=== PATIENT | female | born 1970 | race Caucasian/White ===

== ENCOUNTER 2020-10-23 20:41 | Emergency (ER) | payer SELFPAY ==
[2020-10-23] MEDS ORDERED: Prochlorperazine 5 MG Tab PO ONE (20:42)
[2020-10-23] MEDS ORDERED: Prochlorperazine 10 MG/2 ML SDV IM ONE (21:38)
--- NOTE | 2020-10-23 21:43 | EDM.PDOC ---
ED HPI GENERAL MEDICAL PROBLEM - General Chief Complaint: General Stated Complaint: SHAKY,DIZZY, LOSS OF SLEEP Time Seen by Provider: 10/23/20 21:40 Source of Information: Reports: Patient History Limitations: Reports: No Limitations - History of Present Illness INITIAL COMMENTS - FREE TEXT/NARRATIVE: Jackie is a 49 yo female with complains of dizziness,nausea. She also complains of anxiety,insomnia.She quit smoking 2 days ago and has been feeling so since.No chest pain or fever. She has a h/o COPD,JACK. 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 - Caffeine Use Caffeine Use: Reports: Soda - Recreational Drug Use Recreational Drug Use: Yes Drug Use in Last 12 Months: No Recreational Drug Type: Reports: Methamphetamine ED ROS GENERAL - Review of Systems Review Of Systems: Comprehensive ROS is negative, except as noted in HPI. ED EXAM, GENERAL - Physical Exam Exam: See Below Exam Limited By: No Limitations General Appearance: Alert, No Apparent Distress Ear Exam: Bilateral Ear: Auricle Normal, Canal Normal, TM normal Nose: Normal Inspection Head: Atraumatic Neck: Normal Inspection Respiratory/Chest: Decreased Breath Sounds, Rhonchi Cardiovascular: Normal Peripheral Pulses Neurological: Alert, Oriented Skin Exam: Warm #1 Interpretation EKG Date: 10/23/20 Rhythm: NSR [place]: Normal Comparison: NA - No Prior EKG Course - Vital Signs Last Recorded V/S: Last Vital Signs Temp 97.4 F 10/23/20 20:50 Pulse 76 10/23/20 20:50 Resp 20 10/23/20 20:50 BP 167/91 H 10/23/20 20:50 Pulse Ox 97 10/23/20 20:50 - Orders/Labs/Meds Orders: Active Orders 24 hr Category Date Time Status EKG Documentation Completion [RC] ASDIRECTED Care 10/23/20 20:52 Active CBC WITH AUTO DIFF [HEME] Stat Lab 10/23/20 20:52 Ordered ETOH [ETHANOL BLOOD MEDICAL] [CHEM] Stat Lab 10/23/20 20:52 Ordered TROPONIN I [CHEM] Stat Lab 10/23/20 20:52 Ordered UA W/MICROSCOPIC [URIN] Stat Lab 10/23/20 21:10 Ordered EKG 12 Lead [EK] Routine Ther 10/23/20 20:52 Ordered Labs: Laboratory Tests 10/23/20 10/23/20 Range/Units 21:05 21:10 Sodium 143 (135-145) mmol/L Potassium 4.0 (3.5-5.3) mmol/L Chloride 102 (100-110) mmol/L Carbon Dioxide 33 H (21-32) mmol/L BUN 19 H (7-18) mg/dL Creatinine 0.8 (0.55-1.02) mg/dL Est Cr Clr Drug Dosing 62.78 mL/min Estimated GFR (MDRD) > 60 (>60) BUN/Creatinine Ratio 23.8 H (9-20) Glucose 102 (80-116) mg/dL Calcium 9.1 (8.6-10.2) mg/dL Total Bilirubin 0.3 (0.1-1.3) mg/dL AST 27 H (5-25) IU/L ALT 31 (12-36) U/L Alkaline Phosphatase 116 H (56-112) IU/L Total Protein 7.8 (6.0-8.0) g/dL Albumin 3.5 (3.5-5.2) g/dL Globulin 4.3 g/dL Albumin/Globulin Ratio 0.8 Urine Opiates Screen Negative (NEGATIVE) Ur Oxycodone Screen Negative (NEGATIVE) Ur Propoxyphene Screen Negative (NEGATIVE) Ur Barbituates Screen Negative (NEGATIVE) Ur Tricyclics Screen Negative (NEGATIVE) Ur Phencyclidine Scrn Negative (NEGATIVE) Ur Amphetamine Screen Negative (NEGATIVE) Urine MDMA Screen Negative (NEGATIVE) U Benzodiazepines Scrn Negative (NEGATIVE) U Cocaine Metab Screen Negative (NEGATIVE) U Marijuana (THC) Screen Negative (NEGATIVE) Meds: Medications Discontinued Medications Generic Name Dose Route Start Last Admin Trade Name Freq PRN Reason Stop Dose Admin Prochlorperazine Edisylate 10 mg 10/23/20 21:38 10/23/20 21:40 Prochlorperazine 10 Mg/2 Ml Sdv IM 10/23/20 21:39 10 mg ONETIME ONE Administration Departure - Departure Time of Disposition: 21:51 Disposition: Home, Self-Care 01 Condition: Good Clinical Impression: Vertigo HTN (hypertension) Qualifiers: Hypertension type: essential hypertension Qualified Code(s): I10 - Essential (primary) hypertension - Discharge Information Instructions: Vertigo, [id number] Referrals: PCP,None [Primary Care Provider] - Forms: ED Department Discharge Additional Instructions: May take Compazine 1 tab every 8 hours as needed for nausea/vomiting/dizziness. Follow-up with your primary care physician as needed. Sepsis Event Note (ED) - Evaluation Sepsis Screening Result: No Definite Risk - Focused Exam Vital Signs: Vital Signs Temp Pulse Resp BP Pulse Ox 10/23/20 20:50 97.4 F 76 20 167/91 H 97 - Problem List & Annotations (1) Vertigo SNOMED Code(s): 904249337 Code(s): R42 - DIZZINESS AND GIDDINESS Status: Acute Current Visit: Yes (2) Tobacco abuse SNOMED Code(s): 114006204 Code(s): Z72.0 - TOBACCO USE Status: Acute Current Visit: Yes (3) HTN (hypertension) SNOMED Code(s): 10527470 Code(s): I10 - ESSENTIAL (PRIMARY) HYPERTENSION Status: Acute Current Visit: Yes Qualifiers: Hypertension type: essential hypertension Qualified Code(s): I10 - Essential (primary) hypertension (4) COPD (chronic obstructive pulmonary disease) SNOMED Code(s): 19559937 Code(s): J44.9 - CHRONIC OBSTRUCTIVE PULMONARY DISEASE, UNSPECIFIED Status: Acute Current Visit: Yes Qualifiers: Emphysema type: unspecified (5) JACK (generalized anxiety disorder) SNOMED Code(s): 47429091 Code(s): F41.1 - GENERALIZED ANXIETY DISORDER Status: Acute Current Visit: Yes - Problem List Review Problem List Initiated/Reviewed/Updated: Yes - My Orders Last 24 Hours: My Active Orders 10/23/20 20:52 EKG Documentation Completion [RC] ASDIRECTED CBC WITH AUTO DIFF [HEME] Stat ETOH [ETHANOL BLOOD MEDICAL] [CHEM] Stat TROPONIN I [CHEM] Stat EKG 12 Lead [EK] Routine 10/23/20 21:10 UA W/MICROSCOPIC [URIN] Stat - Assessment/Plan Last 24 Hours: My Active Orders 10/23/20 20:52 EKG Documentation Completion [RC] ASDIRECTED CBC WITH AUTO DIFF [HEME] Stat ETOH [ETHANOL BLOOD MEDICAL] [CHEM] Stat TROPONIN I [CHEM] Stat EKG 12 Lead [EK] Routine 10/23/20 21:10 UA W/MICROSCOPIC [URIN] Stat Plan: Compazine 10 mg IM. May go home. take it PRN. See/establish care with PCP on Sunday
== END 2020-10-23 22:15 | disposition home or self-care (01) ==
LOC: FB.ED 20:41
DX: I10 Essential (primary) hypertension (principal); J44.9 Chronic obstructive pulmonary disease, unspecified; Z88.5 Allergy status to narcotic agent; Z87.891 Personal history of nicotine dependence
CPT/HCPCS: 36415; 80053; 80305-QW; 80307; 81001; 84484; 85025; 93005; 93010; 96372; 99283; 99284-25; J0780; Q0164

== ENCOUNTER 2020-10-26 00:35 | Emergency (ER) | payer SELFPAY ==
[2020-10-26] MEDS ORDERED: methylPREDNISolone Sodium Succinate 125 MG/2 ML SDV ONE (00:44)
[2020-10-26] MEDS ORDERED: Albuterol/Ipratropium 3.0-0.5 MG/3 ML Neb Soln NEB STA (00:45)
[2020-10-26] MEDS ORDERED: methylPREDNISolone Sodium Succinate 125 MG/2 ML SDV IM STA (00:45)
[2020-10-26] MEDS ORDERED: Albuterol/Ipratropium 3.0-0.5 MG/3 ML Neb Soln ONE (00:45)
--- NOTE | 2020-10-26 00:50 | EDM.PDOC ---
ED HPI GENERAL MEDICAL PROBLEM - General Stated Complaint: SOB Time Seen by Provider: 10/26/20 00:50 Source of Information: Reports: Patient, Family History Limitations: Reports: No Limitations - History of Present Illness INITIAL COMMENTS - FREE TEXT/NARRATIVE: Patient presented to the ED because of dyspnea which started today. She is a heavy smoker and has a history of COPD. She coughs but nothing more than usual. There is no fever, chills or chest pain. 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: Psychiatric History: Reports: Addiction - Past Surgical History Female Surgical History: Reports: Tubal Ligation Social & Family History - Caffeine Use Caffeine Use: Reports: Soda ED ROS GENERAL - Review of Systems Review Of Systems: See Below Constitutional: Reports: No Symptoms HEENT: Reports: No Symptoms Respiratory: Reports: Shortness of Breath, Wheezing, Cough Cardiovascular: Reports: No Symptoms Endocrine: Reports: No Symptoms GI/Abdominal: Reports: No Symptoms : Reports: No Symptoms Musculoskeletal: Reports: No Symptoms Skin: Reports: No Symptoms Neurological: Reports: No Symptoms Psychiatric: Reports: No Symptoms ED EXAM, GENERAL - Physical Exam Exam: See Below Exam Limited By: No Limitations General Appearance: Alert, No Apparent Distress Ears: Normal External Exam, Normal Canal, Hearing Grossly Normal Nose: Normal Inspection, Normal Mucosa, No Blood Throat/Mouth: Normal Inspection, Normal Lips Head: Atraumatic, Normocephalic Neck: Normal Inspection, Supple, Non-Tender, Full Range of Motion Respiratory/Chest: No Respiratory Distress, Lungs Clear, No Accessory Muscle Use, Chest Non-Tender, Rhonchi, Wheezing Cardiovascular: Normal Peripheral Pulses, Regular Rate, Rhythm, No Edema, No Gallop, No JVD, No Murmur GI/Abdominal: Normal Bowel Sounds, Soft, Non-Tender, No Organomegaly Back Exam: Normal Inspection, Full Range of Motion Extremities: Normal Inspection, Normal Range of Motion, Non-Tender, No Pedal Edema Course - Vital Signs Text/Narrative:: Solumedrol 125 mg Im x1 Duoneb x 1 Last Recorded V/S: Last Vital Signs Temp 36.3 C 10/26/20 00:45 Pulse 92 10/26/20 00:45 Resp 25 H 10/26/20 00:45 BP 148/91 H 10/26/20 00:45 Pulse Ox 91 L 10/26/20 00:45 - Orders/Labs/Meds Meds: Medications Discontinued Medications Generic Name Dose Route Start Last Admin Trade Name Freq PRN Reason Stop Dose Admin Albuterol/Ipratropium Confirm 10/26/20 00:45 10/26/20 01:05 Albuterol/Ipratropium 3.0-0.5 Mg/3 Ml Neb Soln Administered 10/26/20 00:46 Not Given Dose 3 ml .ROUTE .STK-MED ONE Albuterol/Ipratropium 3 ml 10/26/20 00:45 10/26/20 00:55 Albuterol/Ipratropium 3.0-0.5 Mg/3 Ml Neb Soln NEB 10/26/20 00:46 3 ml NOW STA Administration Methylprednisolone Sodium Succinate Confirm 10/26/20 00:44 10/26/20 01:04 Methylprednisolone Sodium Succinate 125 Mg/2 Ml Sdv Administered 10/26/20 00:45 Not Given Dose 125 mg .ROUTE .STK-MED ONE Methylprednisolone Sodium Succinate 125 mg 10/26/20 00:45 10/26/20 00:50 Methylprednisolone Sodium Succinate 125 Mg/2 Ml Sdv IM 10/26/20 00:46 125 mg NOW STA Administration Departure - Departure Time of Disposition: 01:00 Disposition: Home, Self-Care 01 Condition: Good Clinical Impression: COPD exacerbation - Discharge Information Prescriptions: predniSONE [Prednisone] 40 mg PO DAILY #10 tablet Azithromycin [Zithromax] 250 mg PO DAILY #6 tablet Instructions: Chronic Obstructive Pulmonary Disease Exacerbation, [id number] Referrals: PCP,None [Primary Care Provider] - Forms: ED Department Discharge Additional Instructions: Please read discharge instructions on COPD Quit smoking Prednisone 40 mg daily for 5 days staring tomorrow Z-max as directed Albuterol inhaler 2 puffs every 4-6 hours as needed fo Follow up as needed Sepsis Event Note (ED) - Focused Exam Vital Signs: Vital Signs Temp Pulse Resp BP Pulse Ox 10/26/20 00:45 36.3 C 92 25 H 148/91 H 91 L
[2020-10-26] MEDS ORDERED: Albuterol 8 GM Inhaler INH ONE (00:59)
== END 2020-10-26 01:15 | disposition home or self-care (01) ==
LOC: FB.ED 00:35
DX: J44.1 Chronic obstructive pulmonary disease with (acute) exacerbation (principal); Z88.5 Allergy status to narcotic agent; Z88.6 Allergy status to analgesic agent
CPT/HCPCS: 94640; 96372; 99284-25; A9270-GY; J2930; J7620-GY

== ENCOUNTER 2021-08-21 14:13 | Emergency (ER) | payer MEDICAID ==
[2021-08-21] MEDS ORDERED: Albuterol/Ipratropium 3.0-0.5 MG/3 ML Neb Soln NEB ONE (15:05)
[2021-08-21] MEDS ORDERED: Benzonatate 100 MG Cap PO ONE (15:05)
[2021-08-21] MEDS ORDERED: Labetalol 200 MG Tab PO ONE (15:06)
[2021-08-21] MEDS ORDERED: Dexamethasone 4 MG Tab PO ONE (16:20)
[2021-08-21] MEDS ORDERED: Lactated Ringers 1,000 ML IV ONE (16:23)
[2021-08-21] MEDS ORDERED: Azithromycin 500 MG Tab PO ONE (17:16)
== END 2021-08-21 19:30 | disposition home or self-care (01) ==
LOC: FB.ED 14:13
DX: U07.1 COVID-19 (principal); J44.1 Chronic obstructive pulmonary disease with (acute) exacerbation; F17.200 Nicotine dependence, unspecified, uncomplicated; E66.9 Obesity, unspecified; Z68.30 Body mass index [BMI] 30.0-30.9, adult; Z88.5 Allergy status to narcotic agent
CPT/HCPCS: 36415; 71046; 80053; 84484; 85025; 85379; 86140; 87635; 99283; 99284; A9270; J7120; J8540; J7620-GY; U0002

== ENCOUNTER 2022-06-16 15:25 | Emergency (ER) | payer MEDICAID ==
[2022-06-16] MEDS ORDERED: Sodium Chloride 0.9% 10 ML Syringe FLUSH PRN (15:54)
[2022-06-16] MEDS ORDERED: Albuterol/Ipratropium 3.0-0.5 MG/3 ML Neb Soln NEB ONE (16:13)
[2022-06-16] MEDS ORDERED: methylPREDNISolone Sodium Succinate 125 MG/2 ML SDV IVPUSH ONE (16:13)
[2022-06-16] MEDS ORDERED: methylPREDNISolone Sodium Succinate 125 MG/2 ML SDV IM ONE (16:24)
[2022-06-16 16:41] LABS: BASE EXCESS VENOUS,POC 8 mmol/L (-2 - 3+); PCO2 VENOUS,POC 56 mmHg (41-51); PH VENOUS,POC 7.41 pH Units (7.32-7.43)
[2022-06-16 16:41] LABS: ESTIMATED GFR 76 mL/min (>60)
[2022-06-16 17:18] LABS: CORONAVIRUS COVID-19 NAA NEGATIVE (NEGATIVE)
[2022-06-16] MEDS ORDERED: Furosemide 40 MG/4 ML VIAL IVPUSH ONE (18:30)
[2022-06-16] MEDS ORDERED: Metolazone 2.5 MG Tab PO ONE (18:30)
== END 2022-06-16 20:32 ==
LOC: FB.ED 15:25
DX: I50.9 Heart failure, unspecified (principal); J44.1 Chronic obstructive pulmonary disease with (acute) exacerbation; J10.1 Influenza due to other identified influenza virus with other respiratory manifestations; Z88.5 Allergy status to narcotic agent; Z88.6 Allergy status to analgesic agent; Z79.899 Other long term (current) drug therapy; Z87.891 Personal history of nicotine dependence; Z20.822 Contact with and (suspected) exposure to COVID-19
CPT/HCPCS: 0241U; 36415; 71045; 80053; 83605; 83880; 84484; 85025; 85379; 86140; 87040; 93005; 94640; 96374; 96375; 99285-25; A9270-GY; J1940; J2930; J7620

== ENCOUNTER 2022-09-04 12:58 | Emergency (ER) | payer MEDICAID ==
[2022-09-04] MEDS ORDERED: Albuterol/Ipratropium 3.0-0.5 MG/3 ML Neb Soln NEB ONE (13:48)
[2022-09-04 14:41] LABS: ESTIMATED GFR 107 mL/min (>60)
[2022-09-04 14:44] LABS: BASE EXCESS VENOUS,POC 6 mmol/L (-2 - 3+); PCO2 VENOUS,POC 41 mmHg (41-51); PH VENOUS,POC 7.47 pH Units (7.32-7.43)
[2022-09-04] MEDS ORDERED: Sodium Chloride 0.9% 1,000 ML IV ONE (15:26)
[2022-09-04] MEDS ORDERED: Azithromycin 250 MG Tab PO SCH (15:30)
[2022-09-04] MEDS ORDERED: cefTRIAXone 1 GM Vial IVPUSH SCH (15:30)
[2022-09-04 16:04] LABS: CORONAVIRUS COVID-19 NAA NEGATIVE (NEGATIVE)
[2022-09-04] MEDS: methylPREDNISolone Sodium Succinate 40 MG/1 ML SDV IVPUSH SCH ×2 (16:15→21:41)
[2022-09-04] MEDS ORDERED: Albuterol 0.083% 2.5 MG/3 ML Neb Soln NEB SCH (17:30)
[2022-09-04] MEDS: Albuterol/Ipratropium 3.0-0.5 MG/3 ML Neb Soln NEB SCH ×2 (19:02→21:41)
[2022-09-04] MEDS ORDERED: Albuterol 0.5% 5 MG/ML Neb Soln 20 ML Bottle NEB PRN (19:53)
[2022-09-04] MEDS: Sodium Chloride 0.9% 10 ML Syringe FLUSH PRN (21:41)
[2022-09-05] MEDS: Albuterol/Ipratropium 3.0-0.5 MG/3 ML Neb Soln NEB SCH ×7 (02:47→23:04)
[2022-09-05] MEDS: Sodium Chloride 0.9% 10 ML Syringe FLUSH PRN (03:03)
[2022-09-05] MEDS: methylPREDNISolone Sodium Succinate 40 MG/1 ML SDV IVPUSH SCH (03:15)
[2022-09-05 06:44] LABS: ESTIMATED GFR 112 mL/min (>60)
[2022-09-05] MEDS: Azithromycin 500 MG Tab PO SCH (09:35)
[2022-09-05] MEDS ORDERED: guaiFENesin/Dextromethorphan 100-10 MG/5 ML Soln 5 ML Cup PO PRN (09:42)
[2022-09-06] MEDS: Albuterol/Ipratropium 3.0-0.5 MG/3 ML Neb Soln NEB SCH ×3 (02:15→09:57)
[2022-09-06 06:49] LABS: ESTIMATED GFR 112 mL/min (>60)
[2022-09-06] MEDS ORDERED: predniSONE 20 MG Tab PO SCH (08:00)
[2022-09-06] MEDS: Azithromycin 500 MG Tab PO SCH (08:03)
[2022-09-06] MEDS ORDERED: cefTRIAXone 1 GM Vial IM ONE (09:08)
== END 2022-09-06 13:18 | disposition home or self-care (01) ==
LOC: FB.ED 12:58 → FB.MS 16:32
PROVIDERS: ADMIT Student in an Organized Health Care Education/Training Program; ATTEND Student in an Organized Health Care Education/Training Program
DX: J44.1 Chronic obstructive pulmonary disease with (acute) exacerbation (principal); D72.829 Elevated white blood cell count, unspecified; R00.0 Tachycardia, unspecified; R79.82 Elevated C-reactive protein (CRP); E86.0 Dehydration; R79.89 Other specified abnormal findings of blood chemistry; R82.4 Acetonuria; E88.09 Other disorders of plasma-protein metabolism, not elsewhere classified; R09.02 Hypoxemia; R09.3 Abnormal sputum; I11.0 Hypertensive heart disease with heart failure; I50.9 Heart failure, unspecified; Z88.5 Allergy status to narcotic agent; Z87.891 Personal history of nicotine dependence; Z20.822 Contact with and (suspected) exposure to COVID-19; Z79.899 Other long term (current) drug therapy
CPT/HCPCS: 0241U; 36415; 71046; 80048; 80053; 81001; 83605; 83880; 84484; 85025; 86140; 87040; 93005; 93010; 94150; 94640; 96361; 96374; 99223; 99233; 99238; 99285; 99285-25; A9270-GY; J0696; J2920; J3490; J7030; J7512; J7620

== ENCOUNTER 2023-05-12 13:25 | Emergency (ER) | payer MEDICAID ==
[2023-05-12] MEDS ORDERED: Gentamicin 0.3% Ophth Soln 5 ML Bottle EYEBOTH ONE (13:26)
== END 2023-05-12 14:30 | disposition home or self-care (01) ==
LOC: FB.ED 13:25
DX: H10.89 Other conjunctivitis (principal); K52.9 Noninfective gastroenteritis and colitis, unspecified; J06.9 Acute upper respiratory infection, unspecified; J44.9 Chronic obstructive pulmonary disease, unspecified; Z87.891 Personal history of nicotine dependence; Z79.899 Other long term (current) drug therapy; Z88.5 Allergy status to narcotic agent; Z86.16 Personal history of COVID-19
CPT/HCPCS: 99283; A9270-GY